=== PATIENT | female | born 1975 | race Caucasian/White ===

== ENCOUNTER 2019-12-25 18:41 | Emergency (ER) | payer MEDICARE ==
[~2019-12-25] VITALS: Ht 152.4 cm; Wt 76.4 kg
[~2019-12-25 18:41] MED LIST: DUO-KAPS1 CAP; OMEGA-31000 MG PO; PERCOCET 325 MG1 TA2 PO
[2019-12-25 18:50] VITALS: TEMP 98.6
[2019-12-25] MEDS ORDERED: DIOVAN 160MG160 MG PO (19:05)
[2019-12-25] MEDS ORDERED: OXYCONTIN15 MG PO (19:06)
[2019-12-25] MEDS ORDERED: XTAMPZA ER27 MG PO (19:07)
[2019-12-25 19:59] LABS: BASO % 0.2 % (0.0-2.0); EOS # 0.2 (0.0-0.7); EOS % 3.9 % (0-4.0); GRAN # 1.7 (1.4-6.5); HEMOGLOBIN 12.3 g/dl (12.5-16.0); LYMPH # 1.9 (1.2-3.4); LYMPH % 46.7 % (20.0-51.0); MEAN CELL VOLUME 93 fl (80.0-100.0); MEAN CORPUSCULAR HEMOGLOBIN 31 pg (27.0-31.0); MEAN CORPUSCULAR HGB CONC 33 g/dl (33.0-37.0); MEAN PLATELET VOLUME 8.8 fl (7.4-10.4); MONO # 0.3 (0.1-0.6); MONO % 7.7 % (1.7-9.3); PLATELET COUNT 226 K/mm3 (130-400); REDCELL DISTRIBUTION WIDTH-CV 12.4 % (11.5-14.5)
[2019-12-25 20:09] LABS: ALANINE AMINOTRANSFERASE 29 U/L (4-34); ALKALINE PHOSPHATASE 90 U/L (50-136); ANION GAP 9 mmol/L (7-16); AST,SGOT 30 U/L (15-37); BILIRUBIN,TOTAL 0.3 mg/dL (0.0-1.0); BLOOD UREA NITROGEN 16 mg/dL (7-17); CALCIUM 8.6 mg/dL (8.4-10.2); CARBON DIOXIDE 27 mmol/L (22-30); CHLORIDE 103 mmol/L (98-107); CREATININE, serum 0.93 (0.52-1.25); GLUCOSE 97 mg/dL (74-106); LIPASE 199 U/L (23-300); POTASSIUM 3.7 mmol/L (3.4-5.0); SODIUM 139 mmol/L (137-145); TOTAL PROTEIN 7.4 gm/dL (6.4-8.2)
[2019-12-25 20:10] LABS: C-REACTIVE PROTEIN < 0.5 mg/dL (0.0-0.9)
[2019-12-25 20:34] LABS: COLLECTION METHOD CLEAN CATCH
[2019-12-25 20:44] LABS: MUCOUS Present /lpf; PH 5 (5-8); URINE APPEARANCE Hazy; URINE BACTERIA Rare /hpf; URINE BILIRUBIN Negative (NEGATIVE); URINE BLOOD Negative (NEGATIVE); URINE COLOR Yellow; URINE GLUCOSE Negative (NEGATIVE); URINE KETONE Negative (NEGATIVE); URINE LEUKOCYTE ESTERASE Negative (NEGATIVE); URINE NITRATE Negative (NEGATIVE); URINE PROTEIN(semi-quant) Negative (NEGATIVE); URINE RBC 0-2 /hpf; URINE UROBILINOGEN Negative (NEGATIVE)
[2019-12-25 21:29] VITALS: BP 146/96; PULSE 62
== END 2019-12-25 21:42 | disposition home or self-care (01) ==
LOC: COL.ER 18:41
PROVIDERS: Family Medicine
DX: R10.9 Unspecified abdominal pain (principal); Z87.442 Personal history of urinary calculi; Z90.710 Acquired absence of both cervix and uterus; Z90.89 Acquired absence of other organs
CPT/HCPCS: J2270; J2405; J2550; J7030